=== PATIENT | male | born 1985 | race Caucasian/White ===

== ENCOUNTER 2019-03-31 16:17 | Emergency (ER) | payer MEDICARE ==
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
[2019-03-31 16:58] VITALS: BP 125/75; PULSE 69; O2SAT 98
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
== END 2019-03-31 17:40 | disposition home or self-care (01) ==
LOC: ED 16:17
DX: S16.1XXA Strain of muscle, fascia and tendon at neck level, initial encounter (principal); S39.012A Strain of muscle, fascia and tendon of lower back, initial encounter; M54.31 Sciatica, right side; V89.2XXA Person injured in unspecified motor-vehicle accident, traffic, initial encounter
CPT/HCPCS: 72040; 72100; 99284